=== PATIENT | female | born 1990 | race Caucasian/White ===

== ENCOUNTER 2016-12-04 04:52 | Day surgery (SDC) | payer MEDICAID ==
[~2016-12-04 04:52] MED LIST: CALCIUM + D SO1 EAC1 PO; CELEXA20 M2 PO; FRUITY VITAMIN1 EACH PO
== END 2016-12-04 12:45 ==
LOC: SHSB 04:52 → ORE 06:56 → PACU 10:44 → SHSB 11:00
PROC: 0CRXXJ1 Replacement of Lower Tooth, Multiple, with Synthetic Substitute, External Approach (ICD-10-PCS; principal; 2016-12-04)
PROC: 0CRWXJ1 Replacement of Upper Tooth, Multiple, with Synthetic Substitute, External Approach (ICD-10-PCS; 2016-12-04)
DX: K02.62 Dental caries on smooth surface penetrating into dentin (principal); K02.52 Dental caries on pit and fissure surface penetrating into dentin; F41.9 Anxiety disorder, unspecified; Z98.890 Other specified postprocedural states